=== PATIENT | female | born 1965 | race Caucasian/White ===

== ENCOUNTER 2016-11-12 20:37 | Emergency (ER) | payer OTHER ==
[2016-11-12 20:49] VITALS: TEMP 97.9
[2016-11-12] MEDS ORDERED: traMADol 50 MG TAB PO ONE (23:14)
[2016-11-13] MEDS ORDERED: OXYCODONE/APAP 5/325MG PREPACK#4 BTL TAKEHOME ONE (00:11)
--- NOTE | 2016-11-13 00:12 | EDPHY ---
H & P Stated Complaint: Left Knee Injury Source: Patient, Family - Personal History LMP (Females 10-55): Irregular Current Tetanus Diphtheria and Acellular Pertussis (TDAP): Yes - Medical/Surgical History Hx Asthma: No Hx Chronic Respiratory Disease: No Hx Diabetes: No Hx Cardiac Disease: No Hx Renal Disease: No Hx Cirrhosis: No Hx Alcoholism: No Hx HIV/AIDS: No Hx Splenectomy or Spleen Trauma: No Other PMH: Hypothroid, Fibroids, Polycystic ovaries, - Social History Smoking Status: Never smoked Time Seen by Provider: 11/13/16 00:40 HPI/ROS: HPI: This is a 51-year-old female who presents with Chief Complaint: Left knee injury Location: Left knee Quality: Injury Duration: 3-5 hours prior to arrival Signs and Symptoms: no radiation, no numbness, no weakness, no tingling, + decreased range of motion, + pain with weight-bearing Timing: Sudden Severity: 10/14 Context: Patient has a history of bilateral osteoarthritis of both knees followed outpatient by Dr. Chakraborty; has been receiving Orthovisc injections for the last 4 years. Patient reports that she is walking around [facility] on [address] [employer] today. A gentleman accidentally bumped into her left knee causing it to turn outward with immediate pain. Denies hearing a pop or locking sensation. Modifying Factors: Aleve no relief Comment: ROS: Constitutional: No fever, no chills, no weight loss Eyes: No blurred vision Respiratory: No shortness of breath, no cough Cardiovascular: No chest pain Gastrointestinal: No nausea, no vomiting no diarrhea Genitourinary: No dysuria Extremities: No myalgias Neurologic: No weakness, no numbness Skin: No rashes Hematologic: No bruising, no bleeding MEDICAL/SURGICAL/SOCIAL HISTORY: . (Maria Luisa,Pallavi) - Physical Exam Exam: CONSTITUTIONAL: Obese middle-aged white female, awake and alert, no obvious distress HEENT: Atraumatic and normocephalic, PERRL, EOMI. Tympanic membranes clear. Oropharynx clear, no exudate and moist pink mucosa. Airway patent. No lymphadenopathy. No meningismus. Cardiovascular: Normal S1/S2, regular rate, regular rhythm, without murmur rub or gallop. PULMONARY/CHEST: Symmetrical and nontender. Clear to auscultation bilaterally Good air movement. No accessory muscle usage. ABDOMEN: Soft, nondistended, nontender, no rebound, no guarding, no peritoneal signs, no masses or organomegaly. No CVAT. EXTREMITIES: 2/2 pedal pulses, left knee medial greater than lateral joint line tenderness; mild effusion mostly suprapatellar; full extension to 180; pain with flexion past 50; max is 90. Pain with valgus and varus stress. Will not allow me to perform anterior drawer or posterior drawer test. No calf pain. No fullness and popliteal fossa. Light touch sensation intact. NEUROLOGICAL: no focal neuro deficits. GCS 15. SKIN: Warm and dry, no erythema. no rash. Good capillary refill. (Pallavi Glass) Constitutional: Initial Vital Signs Temperature (C) 36.6 C 11/12/16 20:46 Heart Rate 77 11/12/16 20:46 Respiratory Rate 18 11/12/16 20:46 Blood Pressure 142/95 H 11/12/16 20:46 O2 Sat (%) 97 11/12/16 20:46 O2 Delivery Mode Room Air Allergies/Adverse Reactions: coconut Allergy (Verified 11/12/16 20:45) Home Medications: Medication Instructions Recorded Synthroid 11/12/16 traMADol [Ultram 50 mg (*)] 50 - 100 mg PO Q4 PRN #20 tab 11/13/16 Medical Decision Making - Diagnostics Imaging Results: Imaging Impressions Knee X-Ray 11/12/16 20:50 Impression: Severe degenerative arthritis, with joint effusion. ED Course/Re-evaluation: X-rays, oral medication Patient refused opiate pain medications Did allow me to give her tramadol with moderate relief. X-rays reviewed by myself via PACs show moderate tricompartmental degenerative changes. Suspect ligamentous/meniscus injury; placed in knee immobilizer; given crutches for weight-bearing as tolerated Patient at first had difficulty with ambulation with crutches; but after a while became more proficient. at bedside reports that he will be there to diamond driller helper in her assistance at home I again offered the patient stronger pain medication than Tramadol. She agreed to take 1 dose of Percocet in the ER prior to discharge as well as prepak to take home this evening as pharmacies are closed only. No signs of neurovascular compromise/tenting of skin/compartment syndrome/ extremities and joints examined above and below area of concern and are neurovascularly intact. Patient is requesting follow-up with Dr. Johnson as her is scheduled to have a hip replacement surgery with him. (Pallavi Glass) Differential Diagnosis: Knee injury while [] including but not limited to fracture, ACL injury, contusion, muscular strain, and meniscus injury. (Pallavi Glass) Other Provider: PHYSICIAN DOCUMENTATION: The patient was evaluated and managed by the Physician Heavy Duty Press Operator. My co- signature indicates that I have reviewed this chart and I agree with the findings and plan of care as documented. I am the secondary supervising physician. (Esperanza Gonzalez) - Data Points Medications Given: Discontinued Medications Oxycodone/Acetaminophen (Percocet 5/325mg Prepack#4) 1 btl TAKEHOME EDNOW ONE Stop: 11/13/16 00:12 Last Admin: 11/13/16 00:43 Dose: 1 btl Oxycodone/Acetaminophen (Percocet 5/325) 1 tab PO EDNOW ONE Stop: 11/13/16 00:37 Last Admin: 11/13/16 00:47 Dose: Not Given Tramadol HCl (Ultram) 100 mg PO EDNOW ONE Stop: 11/12/16 23:15 Last Admin: 11/12/16 23:21 Dose: 100 mg Departure - Departure Disposition: Home, Routine, Self-Care Clinical Impression: Derangement of collateral ligament of left knee, Tricompartment osteoarthritis of left knee Condition: Good Instructions: Oxycodone/Acetaminophen (By mouth), Knee Sprain (ED), ACL Injury (ED), Knee Immobilizer (ED) Additional Instructions: Take ibuprofen 600-800 mg every 6-8 hours with food as needed for pain and inflammation. Apply ice for 30 minutes at a time; 2-3 times per day for the next 1-2 days. You may take Ultram 50-100 mg every 4-6 hours as needed for severe/breakthrough pain. Wear knee immobilizer and use crutches until pain free or if follow up with Orthopedics. Follow up with Orthopedics in 2-3 days at which time they will evaluate and recommend with you if conservative management, need for MRI versus surgery is indicated. The x-rays obtained in the emergency department today demonstrate no evidence of an obvious fracture. Sometimes fractures are not obvious on the initial set of x-rays performed in the ED. For this reason, you should have repeat x-rays performed in 7-10 days if you are having any pain exclude the possibility of an occult fracture. Referrals: Corrine Johnson MD [Medical Doctor] - 2-3 days, call for appt. Prescriptions: traMADol [Ultram 50 mg (*)] 50 - 100 mg PO Q4 PRN #20 tab PRN Reason: Pain, Moderate
[2016-11-13] MEDS ORDERED: OXYCODONE/APAP 5/325 TAB ONE (00:36)
[2016-11-13] MEDS ORDERED: OXYCODONE/APAP 5/325 TAB PO ONE (00:36)
[2016-11-13 00:50] VITALS: BP 144/91; PULSE 75; RESP 20; O2SAT 96
== END 2016-11-13 00:50 | disposition home or self-care (01) ==
DX: M23.642 Other spontaneous disruption of lateral collateral ligament of left knee (principal); W22.8XXA Striking against or struck by other objects, initial encounter; Y92.410 Unspecified street and highway as the place of occurrence of the external cause; Y99.8 Other external cause status; Y93.01 Activity, walking, marching and hiking; M17.9 Osteoarthritis of knee, unspecified
CPT/HCPCS: L1830

== ENCOUNTER 2017-03-06 22:33 | Emergency (ER) | payer OTHER ==
--- NOTE | 2017-03-06 23:09 | EDPHY ---
H & P Stated Complaint: FALL 1929, ROLLED LEFT ANKLE, FELL ONTO RIGHT THIGH- PAIN EDEMA Time Seen by Provider: 03/06/17 22:43 HPI/ROS: Chief Complaint: Right thigh, left ankle pain status post fall HPI: 51-year-old woman had a mechanical fall when she slipped on a wet floor about 730 this evening. She inverted her left ankle in landed onto her purse onto her right thigh. Since that time she has had increasing pain and swelling and bruising right thigh and swelling of her left ankle. She does take Motrin every day but no other blood thinning medications. She did not hit her head. No loss of consciousness. She has been ambulating with some discomfort but without any other difficulty. No weakness. ROS: 10 point Review of Systems is negative except as noted in the HPI. Physical Exam: Gen: Awake, Alert, No Distress HEENT: Nose: no rhinorrhea Eyes: PERRLA, EOMI Mouth: Moist mucosa Neck: Supple, no JVD Ext: Right leg:: She has a large anterior lateral mid thigh hematoma with overlying ecchymosis. She has full range of motion of her right hip, right knee and right leg. She has full flexion and extension strength of her knee. Cap refills less than 2 sec. Sensations intact distally. He she has 2+ dorsalis pedis pulses. Toes are downgoing. Left leg: She has ecchymoses over the lateral malleolus with tenderness over the anterior talofibular ligament. No medial tenderness. No foot pain or tenderness. Capillary refills less than 2 sec. Skin: no rash Neuro: CN II-XII intact, Sensation grossly intact, Strength 5/5 in bilateral upper and lower extremities - Personal History LMP (Females 10-55): 1-7 Days Ago Current Tetanus/Diphtheria Vaccine: Yes - Medical/Surgical History Hx Asthma: No Hx Chronic Respiratory Disease: No Hx Diabetes: No Hx Cardiac Disease: No Hx Renal Disease: No Hx Cirrhosis: No Hx Alcoholism: No Hx HIV/AIDS: No Hx Splenectomy or Spleen Trauma: No Other PMH: Hypothroid, Fibroids, Polycystic ovaries, HAND SURG, C-SECT, OSTEOARTHRITIS BILAT KNEE - Social History Smoking Status: Never smoked Constitutional: Initial Vital Signs Temperature (C) 36.5 C 03/06/17 22:39 Heart Rate 90 03/06/17 22:39 Respiratory Rate 24 H 03/06/17 22:39 Blood Pressure 199/118 H 03/06/17 22:39 O2 Sat (%) 98 03/06/17 22:39 O2 Delivery Mode Room Air Allergies/Adverse Reactions: coconut Allergy (Verified 03/06/17 22:38) Home Medications: Medication Instructions Recorded Synthroid 11/12/16 Biothyrine 03/06/17 Medical Decision Making - Diagnostics Imaging Results: Imaging Impressions Ankle X-Ray 03/06/17 22:54 Impression: 1. Soft tissue swelling, most pronounced dorsolaterally with an associated anterior tibiotalar ankle joint effusion, and lateral and medial malleolar avulsion fractures. 2. Age-indeterminate avulsion fragments off the distal dorsal talus and the proximal dorsal navicular. Imaging: I viewed and interpreted images myself ED Course/Re-evaluation: Patient with a large right thigh hematoma and left ankle pain. She has no bony tenderness of her right thigh. She has full range of motion without pain. She has full strength in all flexors and extensors. There is no evidence of acute tendon rupture at this time. She does have a large tense hematoma. She does take Advil daily. No indications for imaging her right leg at this time. She is ambulating without difficulty. Left ankle is swollen and consistent with a left anterior fibular ligament stress brain. Will obtain x-ray to rule out fracture. Patient has bilateral malleolar fractures avulsions. She has been placed in a stirrup splint. She has been referred to Orthopedics for follow-up. She has been given crutches as well. Departure - Departure Disposition: Home, Routine, Self-Care Clinical Impression: Hematoma and contusion, Ankle fracture Condition: Good Instructions: Hematoma (ED), Ankle Fracture (ED), Crutch Instructions (ED), Splint Care (ED) Additional Instructions: Follow up with Orthopedics in 5-7 days for further evaluation. Avoid ibuprofen and aspirin for the next 2 days, you may take acetaminophen as needed for pain. Return to the emergency depart for increasing swelling, weakness, increasing pain, or any other concerns. Referrals: Oly Mitchell [Primary Care Provider] - As per Instructions Waylon Wilcox MD [Medical Doctor] - As per Instructions
[2017-03-07 00:03] VITALS: BP 103/75; PULSE 78; RESP 18; TEMP 97.5; O2SAT 99
== END 2017-03-07 00:03 | disposition home or self-care (01) ==
DX: S82.842A Displaced bimalleolar fracture of left lower leg, initial encounter for closed fracture (principal); S70.11XA Contusion of right thigh, initial encounter; W01.0XXA Fall on same level from slipping, tripping and stumbling without subsequent striking against object, initial encounter
CPT/HCPCS: L4350

== ENCOUNTER → 2017-05-25 | Outpatient (CLI) | payer OTHER | LOC: FIMAGING 13:08 | PROVIDERS: ATTEND Orthopaedic Surgery | DX: S70.11XS Contusion of right thigh, sequela (principal) ==

== ENCOUNTER 2017-11-22 07:31 | Observation (INO) | payer OTHER ==
[~2017-11-22 07:31] MED LIST: ROPIVACAINE 0.2% 80 MG, EPINEPHrine 0.2 MG, KETOROLAC TROMETHAMINE 30 MG in SYRINGE 0 ML IU ONE; TRANEXAMIC ACID 2,000 MG in NS 100 ML IV ONE; TRANEXAMIC ACID 3,000 MG in NS (SYRINGE) 50 ML IRR ONE; TRANEXAMIC ACID 3,000 MG/50 ML BAG IRR ONE; VANCOMYCIN 1 GM VIAL ONE; ceFAZolin 1 GM/5 ML SYR ONE
[2017-11-22] MEDS ORDERED: ACETAMINOPHEN 325 MG TAB PO ONE (07:52)
[2017-11-22] MEDS ORDERED: DEXAMETHASONE 4 MG/ML VIAL IVP ONE (07:52)
[2017-11-22] MEDS ORDERED: ceFAZolin 2 GM/DEXTROSE 100 ML IV ONE (07:52)
[2017-11-22] MEDS ORDERED: FAMOTIDINE 20 MG TAB PO ONE (07:52)
[2017-11-22] MEDS ORDERED: ONDANSETRON 4 MG/2 ML VIAL IVP ONE (07:52)
[2017-11-22] MEDS ORDERED: GABAPENTIN 300 MG CAP PO ONE (07:52)
[2017-11-22] MEDS ORDERED: LIDOCAINE 1% 2 ML INJ ID PRN (07:53)
[2017-11-22] MEDS ORDERED: LR 1,000 ML IV ONE (07:53)
[2017-11-22] MEDS ORDERED: fentaNYL 100 MCG/2 ML INJ ONE (07:59)
[2017-11-22] MEDS ORDERED: PROPOFOL/EMULSION 500 MG/50 ML BOTTLE IV ONE ×2 (08:00→11:24)
[2017-11-22] MEDS ORDERED: POVIDONE-IODINE 20 ML in SODIUM CL IRRIG SOLUTION 500 ML IRR ONE (08:00)
[2017-11-22] MEDS ORDERED: ROPIVACAINE HCL 150 MG/30 ML INJ ONE ×2 (08:02→10:37)
[2017-11-22] MEDS ORDERED: MIDAZOLAM 2 MG/2 ML VIAL IVP ONE (08:11)
[2017-11-22] MEDS ORDERED: CITRIC ACID/SODIUM CITRATE 30 ML UDCUP PO ONE (08:11)
[2017-11-22] MEDS ORDERED: FAMOTIDINE 20 MG/NACL 50 ML IV ONE (08:12)
--- NOTE | 2017-11-22 09:12 | PDHPUP ---
History & Physical Update H&P update statement: This history and physical update is based on an assessment of the patient which was completed after admission or registration (within 24 hours), but prior to the surgery/procedure. H&P update: H&P reviewed & patient examined
[2017-11-22] MEDS ORDERED: HYDROmorphONE/DILAUDID 1 MG/ML INJ IVP PRN (10:28)
[2017-11-22] MEDS ORDERED: fentaNYL 100 MCG/2 ML INJ IVP PRN (10:28)
[2017-11-22] MEDS ORDERED: ALBUTEROL 3 ML DEYVIAL IH PRN (10:28)
[2017-11-22] MEDS ORDERED: PROMETHAZINE HCL 25 MG/ML INJ IVP PRN ×2 (10:28→11:52)
[2017-11-22] MEDS ORDERED: MEPERIDINE 25 MG/0.5 ML AMP IVP PRN (10:28)
[2017-11-22] MEDS ORDERED: DIAZEPAM 5 MG/ML 1 ML SYR IVP PRN (10:28)
[2017-11-22] MEDS ORDERED: ONDANSETRON 4 MG/2 ML VIAL IVP PRN ×2 (10:28→11:52)
[2017-11-22] MEDS ORDERED: LABETALOL HCL 5 MG/ML 20 ML MDV IVP PRN (10:28)
[2017-11-22] MEDS ORDERED: NALOXONE HCL 0.4 MG/ML INJ IVP PRN (10:28)
--- NOTE | 2017-11-22 10:28 | PDANEPAE ---
ANE Past Medical History - Cardiovascular History Hx Hypertension: Yes Hx Arrhythmias: No Hx Chest Pain: No Hx Coronary Artery / Peripheral Vascular Disease: No Hx CHF / Valvular Disease: No Hx Palpitations: No Cardiovascular History Comment: white coat syndrome - Pulmonary History Hx COPD: No Hx Asthma/Reactive Airway Disease: No Hx Recent Upper Respiratory Infection: No Hx Oxygen in Use at Home: No Hx Sleep Apnea: No Sleep Apnea Screening Result - Last Documented: Negative - Neurologic History Hx Cerebrovascular Accident: No Hx Seizures: No Hx Dementia: No - Endocrine History Hx Diabetes: No Endocrine History Comment: ramon's, 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 on metformin for weight control and to curb being pre-diabetic - Renal History Hx Renal Disorders: No - Liver History Hx Hepatic Disorders: No - Neurological & Psychiatric Hx Hx Neurological and Psychiatric Disorders: No - Cancer History Hx Cancer: No - Congenital Disorder History Hx Congenital Disorders: No - GI History Hx Gastrointestinal Disorders: No - Other Health History Other Health History: wears readers occ. fell in feb 2017 breaking ankle that required no surgery- she did however get a large hematoma to her right upper thigh that has now turned into scar tissue per Dr. Henson - Chronic Pain History Chronic Pain: Yes (bilateral knees) - Surgical History Prior Surgeries: x2 last one 06/19/09. at 19 yo hand surgery d/t falling on glass ANE Review of Systems Review of Systems: - Exercise capacity METS (RN): 4 METS ANE Patient History - Allergies Allergies/Adverse Reactions: coconut Allergy (Verified 11/11/17 10:22) - Home Medications Home Medications: Acetaminophen [Tylenol ES 500 mg (*)] 1,500 mg PO BID 11/11/17 [Last Taken Unknown] Levothyroxine [Synthroid 200 mcg (*)] 200 mcg PO DAILY06 11/11/17 [Last Taken 06:15] Liothyronine Sodium [Cytomel 5 mcg (*)] 10 mcg PO DAILY 11/11/17 [Last Taken 06:15] Multivitamins [Multivitamin (*)] 1 each PO DAILY 11/11/17 [Last Taken 11/08/17] [place]-3 Fatty Acids [Fish Oil 1000 mg (*)] 1,000 mg PO DAILY 11/11/17 [Last Taken 11/08/17] metFORMIN HCL [Metformin HCl] 500 mg PO BIDMEAL 11/11/17 [Last Taken 11/20/17] - NPO status NPO Since - Liquids (Date): 11/22/17 NPO Since - Liquids (Time): 06:30 NPO Since - Solids (Date): 11/21/17 NPO Since - Solids (Time): 23:59 - Smoking Hx Smoking Status: Never smoked - Family Anes Hx Family Hx Anesthesia Complications: none ANE Labs/Vital Signs - Vital Signs Blood Pressure: 155/117 Heart Rate: 81 Respiratory Rate: 18 O2 Sat (%): 96 Height: 175.26 cm Weight: 113.852 kg ANE Physical Exam - Airway Neck exam: FROM Mallampati Score: Class 2 Mouth exam: normal dental/mouth exam - Pulmonary Pulmonary: no respiratory distress, clear to auscultation - Cardiovascular Cardiovascular: regular rate and rhythym, no murmur, rub, or gallop - ASA Status ASA Status: III (Severe obesity, htn, hypothyroid) ANE Anesthesia Plan Anesthesia Plan: spinal Regional Anesthesia: adductor canal FNB
[2017-11-22] MEDS ORDERED: LIPID EMULSION 20% 100 ML IV PRN (10:31)
[2017-11-22] MEDS ORDERED: DEXAMETHASONE 4 MG/ML VIAL ONE (10:38)
[2017-11-22] MEDS ORDERED: ONDANSETRON 4 MG/2 ML VIAL ONE (10:38)
--- NOTE | 2017-11-22 11:47 | POSTOPPROG ---
Post Op Note Date of Operation: 11/22/17 Surgeon: Michael Henson Computer Forensic Specialist: Emanuel Anesthesiologist: Eric Anesthesia: IV Sedation, Spinal Post-op Diagnosis: Left knee degenerative arthritis. Procedure: Left total knee arthroplasty Inf/Abcess present in the surg proc area at time of surgery?: No EBL: 50-100 (Adductor canal block in PACU)
[2017-11-22] MEDS ORDERED: PROMETHAZINE HCL 25 MG SUPPR PR PRN (11:52)
[2017-11-22] MEDS ORDERED: LACTULOSE 20 GM/30 ML UDCUP PO PRN (11:52)
[2017-11-22] MEDS ORDERED: NS 500 ML IV PRN (11:52)
[2017-11-22] MEDS ORDERED: POLYETHYLENE GLYCOL 3350 17 GM PKT PO PRN (11:52)
[2017-11-22] MEDS ORDERED: MAGNESIUM HYDROXIDE 30 ML UDCUP PO PRN (11:52)
[2017-11-22] MEDS ORDERED: ONDANSETRON DISINTEGRATING 4 MG TAB PO PRN (11:52)
[2017-11-22] MEDS ORDERED: METOCLOPRAMIDE 10 MG/2 ML VIAL IVP PRN (11:52)
[2017-11-22] MEDS ORDERED: traMADol 50 MG TAB PO PRN (11:52)
[2017-11-22] MEDS ORDERED: CYCLOBENZAPRINE 10 MG TAB PO PRN (11:52)
[2017-11-22] MEDS ORDERED: diphenhydrAMINE 25 MG CAP PO PRN (11:52)
[2017-11-22] MEDS ORDERED: BISACODYL 10 MG SUPP PR PRN (11:52)
[2017-11-22] MEDS ORDERED: DIPHENOXYLATE/ATROPINE LOMOTIL 1 TAB PO PRN (11:52)
[2017-11-22] MEDS ORDERED: TEMAZEPAM 15 MG CAP PO PRN (11:52)
[2017-11-22] MEDS ORDERED: LR 1,000 ML IV SCH (12:00)
--- NOTE | 2017-11-22 12:36 | GOP ---
DATE OF OPERATION: 11/22/2017 SURGEON: Michael Henson MD SIDE PULLER: Chris Gustafson [facility] Anuel Fitzpatrick, [place] ANESTHESIA: Combination of Marcaine, spinal, IV sedation, and adductor canal block ANESTHESIOLOGIST: Liliam Reyes DO PREOPERATIVE DIAGNOSIS: Left knee severe degenerative arthritis. POSTOPERATIVE DIAGNOSIS: Left knee severe degenerative arthritis. PROCEDURE PERFORMED: Left total knee arthroplasty, cemented, Mccoy and Nephew Journey II, posterior stabilized. FINDINGS: ESTIMATED BLOOD LOSS: The estimated blood loss following deflation of the tourniquet was about 100 c c. DESCRIPTION OF PROCEDURE: The patient was given 2 g of IV Ancef preoperatively within 60 minutes of surgery. She also received 2000 mg of IV tranexamic acid preoperatively. She was placed on the oper ating room table and given spinal anesthesia with Marcaine by Dr. Reyes. She was then placed supin e and given IV sedation. A Jarquin catheter was not used. She wore a CATHERINE stocking and SCD on the nono perative leg. A bolster was placed under the left hip to prevent excessive external rotation of the leg. Her left lower extremity was prepped with ChloraPrep from the upper thigh tourniquet to the tip s of the toes. It was draped free using sterile sheets, stockinette, and Ioban plastic adhesive drap e. The lower leg was wrapped with compressive Coban. The leg was exsanguinated with elevation and a 6-inch compressive wrap, and the pneumatic tourniquet was elevated to 400 mmHg. A higher tourniquet pressure was necessary because of how bulky her leg was. The World Health Organization time-out was performed to verify the correct patient identity and the c orrect surgical side and site. The [place] time-out was also performed. The Taltopiaayo leg holding device was sterilely attached to the operating room table and used throughout the procedure to help position the knee. A straight midline incision was made centered on the patell a. Subcutaneous tissues were sharply divided, and hemostasis was obtained using electrocautery. She had a deep layer of subcutaneous fat. A medial subcutaneous flap was developed and capsule and syno vium were opened in medial parapatellar fashion. Extensive degenerative changes were present. She h ad an extensive amount of hypertrophic acutely inflamed synovium, and she had a large effusion presen t in the joint. The medial capsule and periosteum were elevated off the rim of the medial tibial connie teau all the way around to the posteromedial corner. Her medial collateral ligament was released perri ugh to balance the medial side of the knee and correct the varus deformity. I also did a moderate sy novectomy in the medial and lateral gutters and in the suprapatellar pouch. In order to improve exposure, her patella was prepared first. The original thickness of the patella was measured. Peripheral osteophytes were removed. I cut a flat surface on the back of the patella. It was sized for a 38 mm round resurfacing component. I removed enough bone from the patella such that the remaining bone plus the thickness of the patellar component recreated the original thickness of the patella. The composite thickness was 22 mm. The intramedullary alignment guide system was used to set up the distal femoral cut. The femur was c ut in 6 degrees of valgus. Because of a slight preoperative flexion contracture, I made a +2 mm cut on the distal femur. The sizing jig was used to determine proper femoral sizing. I shifted the cutt ing block anteriorly 1 mm in order to accommodate a size 5 without notching the anterior cortex. The 5-in-1 cutting block was applied, and the anterior and posterior condylar cuts and chamfer cuts were made. The final jig was used to remove the central portion of the distal femur to accommodate the p osterior stabilized femoral component. I was careful to determine proper rotation by referencing off Whitesides line and other bony landmarks. Each cut was checked for accuracy. The femur was sized f or a size 5 posterior stabilized component. Next, the tibia was prepared. The proximal tibial cut was made using the extramedullary alignment gu sawyer system. The cut was made in a few degrees of posterior slope. I was careful to achieve proper v arus/valgus alignment and proper rotation. The posterior compartment was cleared of meniscal remnant s. Osteophytes were removed from the back of the femoral condyles. I checked the flexion/extension gaps, and they were equal and balanced. Tibia was sized for a size 5 component. With the trial comp onents in place, I selected the 10 mm polyethylene posterior stabilized tibial insert. The knee came to full extension and flexed to 120 degrees. Flexion greater than 120 degrees was blocked by the bu lk of her leg. Her collateral ligaments were stable and balanced in 90 degrees of flexion and full e xtension. The trial patellar button was applied. She had a tendency for lateral subluxation and jimmy winston I did a limited lateral release. After that, tracking was excellent without digital pressure. 40 cc of the joint anesthetic cocktail were injected into the posterior capsule, the quadriceps muscl e and tendon areas, and the subcutaneous tissues along the skin edges. The surfaces were prepared for cementing. They were carefully cleaned with the pulsating lavage irri gation and thoroughly dried. The CarboJet device was used to blow dry the cancellous surfaces. A do uble batch of high viscosity methylmethacrylate cement with 2 g of powdered vancomycin was added. Wh ile it was still in a doughy state, all 3 components were cemented in place. Excess cement was remov ed before it hardened. The 10 mm trial tibial insert was re-tried and was the proper thickness. The actual component was in serted and locked into place. The knee was thoroughly irrigated 1 final time with a dilute Betadine solution. The tourniquet was deflated. Total tourniquet time was 62 minutes. I instilled 50 cc of tranexamic acid solution locally into the joint. I packed the wound with the lap sponge, and wrapped the knee w ith a 6-inch Edgardo bandage. This was left in place for 3 or 4 minutes. The vastus medialis portion of the extensor mechanism was repaired with several interrupted figure-of -eight #2 FiberWire sutures. The capsule and synovium were closed first with multiple interrupted fi [id number] PDS sutures, followed by a running #2 barbed Ethicon Stratafix PDO suture. The subcu taneous tissues were closed with a running 0 barbed Ethicon Stratafix Monoderm suture. The skin was closed with a running 3-0 barbed Ethicon Stratafix Monoderm subcuticular suture. The skin was sealed with half-inch Steri-Strips. The wound was covered with a large Mepilex waterproof dressing and a 6 -inch compressive wrap. A long-leg CATHERINE stocking and SCD were applied, followed by the cooling device . She wore a stocking and SCD on the opposite leg during the procedure. The sacral Mepilex dressing was applied. I used a size 5 cemented Mccoy and Nephew Oxinium posterior stabilized femoral component, size 5 ceme nted tibial baseplate, a 10 mm posterior stabilized tibial insert, and a 38 mm cemented round all-chloe yethylene resurfacing patellar component. COUNT: The sponge and needle count were correct on 2 occasions. She was awakened from anesthesia, transferred to her hospital [facility], and taken to PACU in satisfacto ry condition. There were no recognized intraoperative complications. In the PACU, for additional po stoperative pain control, Dr. Reyes performed an adductor canal block with an indwelling catheter. Chris Gustafson [facility] and Francesco Fitzpatrick, PAC, acted as surgical assistants. Their assistance was a [facility] necessity for safe completion of the procedure. /[id number]/MODL
[2017-11-22] MEDS ORDERED: KETOROLAC 15 MG/1 ML SDV ONE (12:46)
[2017-11-22] MEDS: KETOROLAC 15 MG/1 ML SDV IVP SCH ×2 (12:47→17:48)
--- NOTE | 2017-11-22 13:30 | POSTANESTH ---
Post Anesthetic Evaluation Respiratory Status: Normal, Stable Level of Consciousness/Mental Status: Can Participate in Eval Pain Control: Adequate, Prn Tx Ordered Nausea/Vomiting Control: Adequate, Prn Tx Ordered Complications Possibly Related to Anesthesia: None Noted
[2017-11-22] MEDS ORDERED: MIDAZOLAM 2 MG/2 ML VIAL ONE (14:23)
[2017-11-22] MEDS: ACETAMINOPHEN 325 MG TAB PO SCH ×2 (15:30→19:15)
[2017-11-22] MEDS: ceFAZolin 2 GM/DEXTROSE 100 ML IV SCH (17:45)
[2017-11-22] MEDS: metFORMIN HCL 500 MG TAB PO SCH (17:49)
[2017-11-22] MEDS: ASPIRIN 325 MG TAB PO SCH (19:57)
[2017-11-22] MEDS: SENNOSIDES/DOCUSATE SODIUM TAB PO SCH (19:58)
[2017-11-22] MEDS: FAMOTIDINE 20 MG TAB PO SCH (19:58)
[2017-11-22] MEDS: oxyCODONE IR 5 MG TAB PO PRN ×2 (20:01→20:47)
[2017-11-23] MEDS: KETOROLAC 15 MG/1 ML SDV IVP SCH ×2 (00:08→06:22)
[2017-11-23] MEDS: ACETAMINOPHEN 325 MG TAB PO SCH ×4 (00:08→17:51)
[2017-11-23] MEDS: ceFAZolin 2 GM/DEXTROSE 100 ML IV SCH (02:06)
[2017-11-23] MEDS: oxyCODONE IR 5 MG TAB PO PRN ×4 (02:07→17:51)
[2017-11-23] MEDS ORDERED: LIOTHYRONINE SODIUM 5 MCG TAB PO SCH (06:00)
[2017-11-23] MEDS ORDERED: LEVOTHYROXINE 100 MCG TAB PO SCH (06:00)
[2017-11-23] MEDS: SENNOSIDES/DOCUSATE SODIUM TAB PO SCH (07:40)
[2017-11-23] MEDS: FAMOTIDINE 20 MG TAB PO SCH (07:40)
[2017-11-23] MEDS: ASPIRIN 325 MG TAB PO SCH (07:40)
[2017-11-23] MEDS: metFORMIN HCL 500 MG TAB PO SCH (07:41)
--- NOTE | 2017-11-23 08:03 | PDCONSULT ---
Leather Cartridge Belt Maker Note: 52 yo female s/p L TKA POD #1 with indwelling adductor canal catheter. Patient awake and alert. No problems reported with anesthetic. Catheter site clean and dry. 15 ml of 0.5% Ropivicaine injected with frequent aspiration. Patient tolerated procedure well. Catheter removed and band-aid placed.
[2017-11-23] MEDS ORDERED: FERROUS SULFATE 140 MG TAB.ER PO SCH (09:00)
--- NOTE | 2017-11-23 12:46 | SOAPPROG ---
SOAP Progress Note Assessment/Plan: Assessment: Postop day 1. Afebrile. Moderate pain. Her progress with physical therapy has been somewhat slow. Postop H&H are good. Postop films look excellent. Her dressing is dry. Plan: Continue physical therapy today. Probable discharge later today if she is cleared by physical therapy. 11/23/17 12:45 Objective: Vital Signs Temp Pulse Resp BP Pulse Ox 36.9 C 73 16 139/86 H 96 11/23/17 12:00 11/23/17 12:00 11/23/17 12:00 11/23/17 12:00 11/23/17 12:00 Laboratory Results 11/23/17 04:45 11/22/17 11/23/17 11/24/17 05:59 05:59 05:59 Intake Total 1909 Output Total 1999 1099 Balance -90 -1100 ICD10 Worksheet Patient Problems: Problems Problem Status Onset Osteoarthritis of left knee Acute
--- NOTE | 2017-11-23 13:02 | GDS ---
ADMISSION DIAGNOSIS: Left knee severe degenerative arthritis. DISCHARGE DIAGNOSIS: Left knee severe degenerative arthritis. TEST PERFORMED: November 22, 2017, left total knee arthroplasty. POSTOPERATIVE COMPLICATIONS: None. CONDITION ON DISCHARGE: Improved. DESCRIPTION OF HOSPITAL COURSE: The patient was admitted to the hospital on the morning of surgery. Her admission H and H were 11.7 and 38.1. Electrolytes, BUN and creatinine were normal. The same d ay, under a combination of Marcaine, spinal, IV sedation, and adductor canal block she underwent a le ft total knee arthroplasty. Postoperatively, she was treated with multimodal DVT prophylaxis, includ ing aspirin. On the first postoperative day, her hemoglobin and hematocrit were 9.6 and 31.2. Her p rogress initially with physical therapy and ambulation was slow. Eventually she was independent walk ing with a walker and doing stairs. DISPOSITION: The patient is discharged to her home. She will go to outpatient physical therapy. Sh e may progress to full weightbearing on the left as tolerated. Continue CATHERINE stockings for 1 week. W ork on knee range of motion. Continue aspirin 325 mg p.o. daily for 21 days. She has prescriptions for oxycodone. She is allergic to tramadol. She will supplement the oxycodone with Tylenol. She wi ll also use Celebrex at home 1 a day for 21 days. I will see her back in the office on December 08. If there any problems, she is to call me at the office. /[id number]/MODL
--- NOTE | 2017-11-23 15:15 | PDIAF ---
- Diagnosis Diagnosis: L knee OA Code Status: Full Code - Medication Management Discharge Medications: Medications to Continue on Transfer Levothyroxine [Synthroid 200 mcg (*)] 200 mcg PO DAILY06 11/11/17 [Last Taken 06:15] Liothyronine Sodium [Cytomel 5 mcg (*)] 10 mcg PO DAILY@06 11/11/17 [Last Taken 11/22/17 06:15] Multivitamins [Multivitamin (*)] 1 each PO DAILY 11/11/17 [Last Taken 11/08/17] Surrency-3 Fatty Acids [Fish Oil 1000 mg (*)] 1,000 mg PO DAILY 11/11/17 [Last Taken 11/08/17] metFORMIN HCL [Metformin HCl] 500 mg PO BIDMEAL 11/11/17 [Last Taken 11/20/17] Acetaminophen [Tylenol 325mg (*)] 650 mg PO Q6HRS tab 11/23/17 [Last Taken Unknown] Aspirin [Aspirin 325 mg (*)] 325 mg PO DAILY tab 11/23/17 [Last Taken Unknown] Ferrous Sulfate [Slow Fe 140 MG (*)] 140 mg PO DAILY tab.er 11/23/17 [Last Taken Unknown] Ondansetron Odt [Zofran Odt 4 mg (*)] 4 mg PO Q4HRS PRN tab 11/23/17 [Last Taken Unknown] Sennosides/Docusate Sodium [Senokot-S] 1 - 2 tab PO BID tab 11/23/17 [Last Taken Unknown] celeCOXIB [Celebrex (*)] 200 mg PO DAILY cap 11/23/17 [Last Taken Unknown] oxyCODONE IR [Oxycodone Ir (*)] 5 - 10 mg PO Q3HRS PRN #30 tab 11/23/17 [Last Taken Unknown] Discharge Medications: Refer to the Discharge Home Medication list for PRN reason. PICC Care - Routine: N/A - Orders Services needed: Home Care, Physical Therapy Home Care Face to Face: I certify that this patient was under my care and that I had the required [id number] encounter meeting the encounter requirements on the discharge day. My findings support the fact that the patient is homebound as defined in Home Care Face to Face Continued: CMS Chapter 7 Medicare Benefits Manual 30.1.1 , The condition of the patient is such that there exists a normal inability to leave home and consequently, leaving home would require a considerable and taxing effort. Diet Recommendation: no restrictions on diet Diet Texture: Regular Texture Diet Jarquin: Not applicable Gianni Stockings Discontinue Date: 1 week Wound Care Instructions: keep clean and dry. You may shower. Activity/Weight Bearing Restrictions: As tolerated. - Follow Up Care Current Providers and Referrals: Michael Henson MD [Medical Doctor] - 12/08/17 Oly Mitchell [Primary Care Provider] -
[2017-11-23 15:26] VITALS: BP 151/87
--- NOTE | 2017-11-23 17:05 | ASMTLACE ---
LACE Length of stay for Answers: 2 days current admission Acuity / Level of Answers: No Care: Did the patient have an inpatient admission? Comorbidities - select Answers: Opioid dependence all that apply / Chronic pain Other Notes: HTN # of Emergency department Answers: 0 visits in the last 6 months Score: 7 Date Signed: 11/23/2017 04:58 PM Electronically Signed By:RACHEL Walker
--- NOTE | 2017-11-23 17:08 | ASMTCMCOM ---
CM Note CM Note Notes: Pt s/p OA of knee. OT rec home/HHC, PT rec HHC. Pt requests HHC as she needs stair training/home safety considering the 21 stairs she has. Pt decided very late in the business day she was going to d/c today, [facility] alerted and because the notification was late in the day [facility] may not be able to see pt until Tuesday. [facility] will let this CM know staffing tomorrow and CM will update pt if the [facility] SOC is not until Tuesday. Orders to be obtained via [employer]. Pt to transport home. Date Signed: 11/23/2017 05:04 PM Electronically Signed By:RACHEL Walker
--- NOTE | 2017-11-24 11:23 | ASDISCHSUM ---
Discharge Information Plan Status:Home with Home Health Medically Cleared to Leave: Discharge Date:11/23/2017 06:10 PM D/C Disposition:Home Health Service ADT D/C Disposition:Home, Routine, Self-Care Projected Discharge Date:11/23/2017 11:00 AM Transportation at D/C: Discharge Delay Reason: Follow-Up Date:11/23/2017 11:00 AM Discharge Slot: Final Diagnosis: Placement Information Referral Type:*Home Health Care Services Referral ID:[id number] Provider Name:[facility] Address 1:[address] [address] Address 2: City:[place] Selection Factors: State:[place] Patient Contact Information Contact Name:BRAD Relationship: Address:[address] City:[place] Alternate Phone: State/Zip Code:[place] [address] Email: Financial Information Financial Class:HMO and PPO Plans Primary Plan Desc:[facility] Primary Plan Number:[id number] Secondary Plan Desc: Secondary Plan Number: Assessment Information LACE LACE Length of stay for Answers: 2 days current admission Acuity / Level of Answers: No Care: Did the patient have an inpatient admission? Comorbidities - select Answers: Opioid dependence all that apply / Chronic pain Other Notes: HTN # of Emergency department Answers: 0 visits in the last 6 months Score: 7 Date Signed: 11/23/2017 04:58 PM Electronically Signed By:RACHEL Walker [facility] CM Progress Note CM Note CM Note Notes: Pt s/p OA of knee. OT rec home/HHC, PT rec HHC. Pt requests HHC as she needs stair training/home safety considering the 21 stairs she has. Pt decided very late in the business day she was going to d/c today, [facility] alerted and because the notification was late in the day [facility] may not be able to see pt until Tuesday. [facility] will let this CM know staffing tomorrow and CM will update pt if the HC SOC is not until Tuesday. Orders to be obtained via [employer]. Pt to transport home. Date Signed: 11/23/2017 05:04 PM Electronically Signed By:RACHEL Walker Intervention Information
== END 2017-11-23 18:10 | disposition home health service (06) ==
LOC: F3N 07:31
PROVIDERS: ADMIT Orthopaedic Surgery; ATTEND Orthopaedic Surgery
PROC: 0SRD0J9 Replacement of Left Knee Joint with Synthetic Substitute, Cemented, Open Approach (ICD-10-PCS; principal; 2017-11-22 09:15)
DX: M17.12 Unilateral primary osteoarthritis, left knee (principal); I10 Essential (primary) hypertension
CPT/HCPCS: 27447; 73560; 77073; 97110; 97116; 97161; 97165; 97530; 97535; G0378; C1713; J0171; J0690; J1100; J1885; J2250; J2405; J2704; J2795; J3010; J3370

== ENCOUNTER 2018-01-31 09:43 | Observation (INO) | payer OTHER ==
[~2018-01-31 09:43] MED LIST changes: +POVIDONE-IODINE 20 ML in SODIUM CL IRRIG SOLUTION 500 ML IRR ONE; -TRANEXAMIC ACID 3,000 MG/50 ML BAG IRR ONE; -VANCOMYCIN 1 GM VIAL ONE; -ceFAZolin 1 GM/5 ML SYR ONE
[2018-01-31] MEDS ORDERED: FAMOTIDINE 20 MG TAB PO ONE (10:03)
[2018-01-31] MEDS ORDERED: ONDANSETRON 4 MG/2 ML VIAL IVP ONE (10:03)
[2018-01-31] MEDS ORDERED: ceFAZolin 2 GM/DEXTROSE 100 ML IV ONE (10:03)
[2018-01-31] MEDS ORDERED: DEXAMETHASONE 4 MG/ML VIAL IVP ONE (10:03)
[2018-01-31] MEDS ORDERED: ACETAMINOPHEN 325 MG TAB PO ONE (10:03)
[2018-01-31] MEDS ORDERED: GABAPENTIN 300 MG CAP PO ONE (10:03)
[2018-01-31] MEDS ORDERED: LR 1,000 ML IV ONE (10:04)
[2018-01-31] MEDS ORDERED: LIDOCAINE 1% 2 ML INJ ID PRN (10:04)
[2018-01-31] MEDS ORDERED: VANCOMYCIN 1 GM VIAL ONE (10:19)
[2018-01-31] MEDS ORDERED: ceFAZolin 1 GM/5 ML SYR ONE (10:20)
[2018-01-31] MEDS ORDERED: MIDAZOLAM 2 MG/2 ML VIAL ONE (12:11)
[2018-01-31] MEDS ORDERED: BUPIVACAINE/DEXTROSE 7.5MG/ML 2 ML SPINAL AMP SP ONE (12:20)
[2018-01-31] MEDS ORDERED: ROPIVACAINE HCL 150 MG/30 ML INJ ONE (12:20)
[2018-01-31] MEDS ORDERED: PROPOFOL/EMULSION 500 MG/50 ML BOTTLE IV ONE ×3 (12:20→14:02)
[2018-01-31] MEDS ORDERED: DEXAMETHASONE 4 MG/ML VIAL ONE (12:36)
[2018-01-31] MEDS ORDERED: ONDANSETRON 4 MG/2 ML VIAL ONE (12:36)
[2018-01-31] MEDS ORDERED: fentaNYL 100 MCG/2 ML INJ IVP PRN (12:39)
[2018-01-31] MEDS ORDERED: oxyCODONE IR 5 MG TAB PO PRN (12:39)
[2018-01-31] MEDS ORDERED: MIDAZOLAM 2 MG/2 ML VIAL IVP ONE (12:39)
[2018-01-31] MEDS ORDERED: ALBUTEROL 3 ML DEYVIAL IH PRN (12:39)
[2018-01-31] MEDS ORDERED: DEXAMETHASONE 4 MG/ML VIAL IVP PRN (12:39)
[2018-01-31] MEDS ORDERED: ONDANSETRON 4 MG/2 ML VIAL IVP PRN ×2 (12:39→14:36)
[2018-01-31] MEDS ORDERED: NALOXONE HCL 0.4 MG/ML INJ IVP PRN (12:39)
[2018-01-31] MEDS ORDERED: HYDROmorphONE/DILAUDID 2 MG/ML INJ IVP PRN (12:39)
--- NOTE | 2018-01-31 12:41 | PDANEPAE ---
ANE History of Present Illness R TKA ANE Past Medical History - Cardiovascular History Hx Hypertension: Yes Hx Arrhythmias: No Hx Chest Pain: No Hx Coronary Artery / Peripheral Vascular Disease: No Hx CHF / Valvular Disease: No Hx Palpitations: No Cardiovascular History Comment: white coat syndrome - Pulmonary History Hx COPD: No Hx Asthma/Reactive Airway Disease: No Hx Recent Upper Respiratory Infection: No Hx Oxygen in Use at Home: No Hx Sleep Apnea: No Sleep Apnea Screening Result - Last Documented: Negative - Neurologic History Hx Cerebrovascular Accident: No Hx Seizures: No Hx Dementia: No - Endocrine History Hx Diabetes: No Endocrine History Comment: ramon's, 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 on metformin for weight control and to curb being pre-diabetic - Renal History Hx Renal Disorders: No - Liver History Hx Hepatic Disorders: No - Neurological & Psychiatric Hx Hx Neurological and Psychiatric Disorders: No - Cancer History Hx Cancer: No - Congenital Disorder History Hx Congenital Disorders: No - GI History Hx Gastrointestinal Disorders: No - Other Health History Other Health History: wears readers occ. fell in feb 2017 breaking ankle that required no surgery- she did however get a large hematoma to her right upper thigh that has now turned into scar tissue per Dr. Henson - Chronic Pain History Chronic Pain: Yes (bilateral knees) - Surgical History Prior Surgeries: x2 last one 06/19/09. at 19 yo hand surgery d/t falling on glass ANE Review of Systems Review of Systems: - Exercise capacity METS (RN): 4 METS ANE Patient History - Allergies Allergies/Adverse Reactions: coconut Allergy (Verified 01/25/18 12:14) - Home Medications Home Medications: Levothyroxine [Synthroid 200 mcg (*)] 11/11/17 [Last Taken 01/31/18 07:55] Liothyronine Sodium [Cytomel 5 mcg (*)] 11/11/17 [Last Taken 01/31/18 07:55] metFORMIN HCL [Metformin HCl] 11/11/17 [Last Taken 3 Days Ago ~01/28/18] Acetaminophen [Tylenol 325mg (*)] Q6HRS PRN 01/25/18 [Last Taken 01/31/18 07:55] celeCOXIB [Celebrex (*)] 01/25/18 [Last Taken 1 Day Ago ~01/30/18] - NPO status NPO Since - Liquids (Date): 01/31/18 NPO Since - Liquids (Time): 07:45 NPO Since - Solids (Date): 01/30/18 NPO Since - Solids (Time): 22:00 - Smoking Hx Smoking Status: Never smoked - Family Anes Hx Family Hx Anesthesia Complications: none ANE Labs/Vital Signs - Vital Signs Blood Pressure: 164/108 Heart Rate: 90 Respiratory Rate: 18 O2 Sat (%): 95 Height: 175.26 cm Weight: 113.852 kg ANE Physical Exam - Airway Neck exam: FROM Mallampati Score: Class 2 Mouth exam: normal dental/mouth exam - Pulmonary Pulmonary: clear to auscultation - Cardiovascular Cardiovascular: regular rate and rhythym - ASA Status ASA Status: III ANE Anesthesia Plan Anesthesia Plan: spinal Regional Anesthesia: adductor canal FNB
--- NOTE | 2018-01-31 14:18 | POSTOPPROG ---
Post Op Note Date of Operation: 01/31/18 Surgeon: Michael Henson Blanching Machine Operator: Sj/Amari Anesthesiologist: Kumar Anesthesia: IV Sedation, Spinal Post-op Diagnosis: Right knee severe degenerative arthritis. Procedure: Right total knee arthroplasty. Inf/Abcess present in the surg proc area at time of surgery?: No EBL: 50-100 (Adductor canal block with indwelling catheter in PACU)
[2018-01-31] MEDS ORDERED: CYCLOBENZAPRINE 10 MG TAB PO PRN (14:36)
[2018-01-31] MEDS ORDERED: POLYETHYLENE GLYCOL 3350 17 GM PKT PO PRN (14:36)
[2018-01-31] MEDS ORDERED: TEMAZEPAM 15 MG CAP PO PRN (14:36)
[2018-01-31] MEDS ORDERED: BISACODYL 10 MG SUPP PR PRN (14:36)
[2018-01-31] MEDS ORDERED: METOCLOPRAMIDE 10 MG/2 ML VIAL IVP PRN (14:36)
[2018-01-31] MEDS ORDERED: PROMETHAZINE HCL 25 MG SUPPR PR PRN (14:36)
[2018-01-31] MEDS ORDERED: ONDANSETRON DISINTEGRATING 4 MG TAB PO PRN (14:36)
[2018-01-31] MEDS ORDERED: LACTULOSE 20 GM/30 ML UDCUP PO PRN (14:36)
[2018-01-31] MEDS ORDERED: NS 500 ML IV PRN (14:36)
[2018-01-31] MEDS ORDERED: DIPHENOXYLATE/ATROPINE LOMOTIL 1 TAB PO PRN (14:36)
[2018-01-31] MEDS ORDERED: MAGNESIUM HYDROXIDE 30 ML UDCUP PO PRN (14:36)
[2018-01-31] MEDS ORDERED: diphenhydrAMINE 25 MG CAP PO PRN (14:36)
[2018-01-31] MEDS ORDERED: PROMETHAZINE HCL 25 MG/ML INJ IVP PRN (14:36)
--- NOTE | 2018-01-31 14:55 | POSTANESTH ---
Post Anesthetic Evaluation Cardiovascular Status: Normal, Stable Respiratory Status: Normal, Stable Level of Consciousness/Mental Status: Can Participate in Eval, Alert and Oriented Pain Control: Adequate, Prn Tx Ordered Nausea/Vomiting Control: Adequate, Prn Tx Ordered Complications Possibly Related to Anesthesia: None Noted
[2018-01-31] MEDS ORDERED: LR 1,000 ML IV SCH (15:00)
--- NOTE | 2018-01-31 15:50 | GOP ---
DATE OF OPERATION: 01/31/2018 SURGEON: Michael Henson MD REGIONAL EDUCATION MANAGER: Chris Gustafson, OPERATIONS/DISPATCH and Anuel Fitzpatrick, PAC. ANESTHESIA: A combination of Marcaine, spinal, IV sedation, and adductor canal block. ANESTHESIOLOGIST: Harley Heath DO PREOPERATIVE DIAGNOSIS: Right knee severe degenerative arthritis with varus deformity. POSTOPERATIVE DIAGNOSIS: Right knee severe degenerative arthritis with varus deformity. PROCEDURE PERFORMED: Right total knee arthroplasty, cemented, Mccoy and Nephew Journey II, posterior stabilized. FINDINGS: DESCRIPTION OF PROCEDURE: The patient was given 2 g of IV Ancef within 60 minutes of surgery. She a lso received IV tranexamic acid preoperatively. She was placed on the operating room table and given spinal anesthesia with Marcaine by Dr. Heath. She was then placed supine and given IV sedation. A Jarquin catheter was not used. She wore a CATHERINE stocking and SCD on the nonoperative leg. A bolster was placed under the right hip to prevent excessive external rotation of the leg. Her right lower extre mity was prepped with ChloraPrep from the upper thigh tourniquet to the tips of the toes. It was patrick ped free using sterile sheets, stockinette, and Ioban plastic adhesive drape. The lower leg was wrap ped with compressive Coban. The leg was exsanguinated with elevation and a 6-inch compressive wrap, and the pneumatic tourniquet was inflated to 350 mmHg. A higher tourniquet pressure was necessary be cause of how bulky her thigh was. The World Health Organization time-out was performed to verify the correct patient identity and the c orrect surgical side and site. The [place] time-out was also performed. The Candi Controlsayo leg holding device was sterilely attached to the operating room table and used throughout the procedure to help position the knee. A straight midline incision was made centered on the patell a. Subcutaneous tissues were sharply divided and hemostasis was obtained using electrocautery. She had a deep layer of subcutaneous fat. A medial subcutaneous flap was developed, and the capsule and synovium were opened in a medial parapatellar fashion. Extensive degenerative changes were present. She had large osteophytes along the medial and lateral rims of her femur. She also had a very large amount of hypertrophic, acutely inflamed synovium and a large effusion. The medial capsule and marysol osteum were elevated off the rim of the medial tibial plateau all the way around to the posteromedial corner. Her medial collateral ligament was released enough to balance the medial side of the knee a nd correct the varus deformity. I did a subtotal synovectomy in the medial and lateral gutters and i n the suprapatellar pouch. In order to improve exposure, her patella was prepared first. The original thickness of the patella was measured. Peripheral osteophytes were removed. I cut a flat surface on the back of the patella. She was sized for a 38 mm round resurfacing component. I removed enough bone from the patella, suc h that the remaining bone, plus the thickness of the patellar component recreated the original thickn ess of the patella. The composite thickness was 23 mm. The intramedullary alignment guide system was used to set up the distal femoral cut. The distal femu r was cut in 6 degrees of valgus. Because of a mild preoperative flexion contracture, and because I was using a posterior stabilized femoral component, I made a +2 mm cut on the distal femur. I shifte d the size 5 cutting block anteriorly 2 mm in order to accommodate the size 5 without notching the co rtex. The 5-in-1 cutting block was applied, and the anterior and posterior condylar cuts and chamfer cuts were made. The final jig was used to remove the central portion of the distal femur to accommo date the posterior stabilized femoral component. I was careful to determine proper rotation by refer encing off Whitesides line and other bony landmarks. Each cut was checked for accuracy. The femur w as sized for a size 5 posterior stabilized component. Next, the tibia was prepared. The proximal cut was made using the extramedullary alignment guide sys tem. The cut was made in a few degrees of posterior slope. I was careful to achieve proper varus, v algus alignment and proper rotation. The posterior compartment was cleared of meniscal remnants. Os teophytes were removed from the back of her femoral condyles. I checked the flexion and extension ga ps and they were equal and balanced. Her tibia was sized for a size 5 component. With the trial com ponents in place, I selected an 11 mm polyethylene posterior stabilized tibial insert. The knee came to full extension and flexed to 120 degrees. Flexion further than 120 degrees was blocked by the bu lk of her leg. Her collateral ligaments were stable and balanced in 90 degrees of flexion and full e xtension. The trial patellar button was applied. Patellar tracking was excellent without any digita l pressure. 40 mL of the joint anesthetic cocktail were injected into the posterior capsule, the quadriceps muscl e and tendon areas, and the subcutaneous tissues along the skin edges. The surfaces were prepared fo r cementing. They were carefully cleaned with the pulsating lavage irrigation and thoroughly dried. The CarboJet device was used to blow dry the cancellous surfaces. A double batch of high viscosity methylmethacrylate cement with 2 g of powdered vancomycin added was mixed. While it was still in a d oughy state, all [address] components were cemented in place. Excess cement was removed before it hardened. The 11 mm trial tibial insert was re-tried and was the proper thickness. The actual component was in serted and locked into place. The knee was thoroughly irrigated 1 final time with a dilute Betadine solution. The tourniquet was deflated. Total tourniquet time was 1 hour and 5 minutes. 50 cc of tr anexamic acid solution were irrigated into the joint. I packed the wound with a lap sponge and wrapp ed the knee with a 6-inch Edgardo bandage. This was left in place for 2 or 3 minutes. The vastus medialis portion of the extensor mechanism was repaired with several interrupted figure-of -eight #2 FiberWire sutures. The capsule and synovium were closed first with multiple interrupted fi [id number] 0 PDS sutures, followed by a running. barbed Ethicon Stratafix PDO suture. The subcuta neous tissues were closed with a running 0 barbed Ethicon Stratafix Monoderm suture. The skin was cl osed with a running 3-0 barbed Ethicon Stratafix Monoderm subcuticular suture. The skin was sealed w ith half-inch Steri-Strips. The wound was covered with a large Mepilex waterproof dressing and a 6-i nch compressive wrap. A long-leg CATHERINE stocking and SCD were applied, followed by the cooling device. The sacral Mediplex dressing was also applied. I used a size 5 cemented Mccoy and Nephew Oxinium posterior stabilized femoral component, size 5 ceme nted tibial base plate, an 11 mm posterior stabilized tibial insert, and a 38 mm cemented round all-p olyethylene resurfacing patellar component. Because of her size, I elected to cement the stem of the tibial base plate. The sponge and needle count were correct on 2 occasions. She was awakened from anesthesia, transferred to her hospital [facility], and taken to PACU in satisfacto ry condition. There were no recognized intraoperative complications. In the PACU, for additional po stoperative pain control, Dr. Randall Heath performed an adductor canal block with an indwelling cathet er. Chris Gustafson and Francesco Fitzpatrick acted as surgical assistants. Their assistance was a medical necess ity for safe completion of the procedure. /[id number]/MODL
[2018-01-31] MEDS ORDERED: KETOROLAC 15 MG/1 ML SDV IVP SCH (18:00)
[2018-01-31] MEDS: ACETAMINOPHEN 325 MG TAB PO SCH ×2 (18:25→23:25)
[2018-01-31] MEDS: metFORMIN HCL 500 MG TAB PO SCH (18:25)
[2018-01-31] MEDS: oxyCODONE IR 5 MG TAB PO PRN ×3 (19:06→23:24)
[2018-01-31] MEDS: SENNOSIDES/DOCUSATE SODIUM TAB PO SCH (20:00)
[2018-01-31] MEDS: FAMOTIDINE 20 MG TAB PO SCH (20:00)
[2018-01-31] MEDS: ceFAZolin 2 GM/DEXTROSE 100 ML IV SCH (20:00)
[2018-01-31] MEDS: LIOTHYRONINE SODIUM 5 MCG TAB PO SCH (20:04)
[2018-01-31] MEDS: ASPIRIN 325 MG TAB PO SCH (20:06)
[2018-01-31] MEDS: KETOROLAC 15 MG/1 ML SDV IVP SCH (23:34)
[2018-02-01] MEDS: ceFAZolin 2 GM/DEXTROSE 100 ML IV SCH (04:53)
[2018-02-01] MEDS: ACETAMINOPHEN 325 MG TAB PO SCH ×2 (05:07→13:11)
[2018-02-01] MEDS: oxyCODONE IR 5 MG TAB PO PRN ×4 (05:09→15:59)
[2018-02-01] MEDS ORDERED: LEVOTHYROXINE 200 MCG TAB PO SCH (06:00)
[2018-02-01] MEDS: KETOROLAC 15 MG/1 ML SDV IVP SCH ×2 (06:12→12:58)
[2018-02-01] MEDS ORDERED: ROPIVACAINE HCL 150 MG/30 ML INJ ONE (07:22)
[2018-02-01] MEDS: metFORMIN HCL 500 MG TAB PO SCH (08:40)
[2018-02-01] MEDS ORDERED: FERROUS SULFATE 140 MG TAB.ER PO SCH (09:00)
--- NOTE | 2018-02-01 09:16 | SOAPPROG ---
SOAP Progress Note Assessment/Plan: Assessment: Afebrile. Moderate pain. Took oxy yesterday. ACB re dosed. H/H is good. Films look good. Dsg is dry. Plan: Up with PT. DC later today. Home PT. 02/01/18 09:15 Objective: Vital Signs Temp Pulse Resp BP Pulse Ox 37.1 C 78 19 149/85 H 97 02/01/18 07:56 02/01/18 08:25 02/01/18 08:25 02/01/18 08:25 02/01/18 08:25 Laboratory Results 02/01/18 04:31 01/31/18 02/01/18 02/02/18 05:59 05:59 05:59 Intake Total 1750 Output Total 1050 Balance 700 ICD10 Worksheet Patient Problems: Problems Problem Status Onset Osteoarthritis of right knee Acute Osteoarthritis of left knee Acute
--- NOTE | 2018-02-01 09:18 | PDIAF ---
- Diagnosis Diagnosis: right knee OA Code Status: Full Code - Medication Management Discharge Medications: electronically signed and located in the Home Medication List. PICC Care - Routine: N/A - Orders Services needed: Home Care, Physical Therapy Home Care Face to Face: I certify that this patient was under my care and that I had the required [id number] encounter meeting the encounter requirements on the discharge day. My findings support the fact that the patient is homebound as defined in Home Care Face to Face Continued: CMS Chapter 7 Medicare Benefits Manual 30.1.1 , The condition of the patient is such that there exists a normal inability to leave home and consequently, leaving home would require a considerable and taxing effort. Diet Recommendation: no restrictions on diet Diet Texture: Regular Texture Diet Jarquin: Not applicable Gianni Stockings Discontinue Date: 1 week Wound Care Instructions: keep clean and dry. You may shower Activity/Weight Bearing Restrictions: as tolerated. Equipment: Zero knee while in bed as tolerated. - Follow Up Care Current Providers and Referrals: Oly Mitchell [Primary Care Provider] - Michael Henson MD [Medical Doctor] - 02/13/18
--- NOTE | 2018-02-01 09:51 | GDS ---
ADMISSION DIAGNOSIS: Right knee severe degenerative arthritis. DISCHARGE DIAGNOSIS: Right knee severe degenerative arthritis. OPERATIONS PERFORMED: 01/31/2018: A right total knee arthroplasty. POSTOPERATIVE COMPLICATIONS: None. CONDITION ON DISCHARGE: Improved. DESCRIPTION OF HOSPITAL COURSE: The patient was admitted to the hospital on the morning of surgery. Her admission CBC, electrolytes, and BUN and creatinine were normal. The same day, under a combinat ion of Marcaine, spinal, IV sedation, and adductor canal block, she underwent a right total knee arth roplasty. Postoperatively, she was treated with multimodal DVT prophylaxis, including aspirin. On t he first postoperative day, her hemoglobin and hematocrit were 10.9 and 34.0. She was seen by Physic al Therapy and made satisfactory progress with ambulation and stairs. By the time of discharge, she was afebrile, her dressing was dry, and she was independent walking with a walker. DISPOSITION: The patient discharged to her home. She will have a couple of visits of home PT. She may progress to full weightbearing on the right as tolerated. Use CATHERINE stockings for 1 week. Continu e aspirin 325 mg p.o. daily for 21 days. She has prescriptions for oxycodone, tramadol, and Celebrex for pain control. I will see her back in the office on February 13, 2018. If there are any problem s, she is to call me at the office. /[id number]/MODL
[2018-02-01] MEDS ORDERED: LIPID EMULSION 20% 100 ML IV PRN (09:52)
--- NOTE | 2018-02-01 09:55 | PDPAINCON ---
Pain Management Consultation - Subjective Pain at rest (/10): 7 Pain with activity (/10): 8 Pain is: high, but manageable (pt c/o posterior and lateral pain) Activity: out of bed with assistance - Objective Technique: continuous peripheral nerve block Site: femoral Continuous infusion: ropivicaine Catheter site: clean, dry, intact, no erythema/edema/exudate Sensory and motor exam: consistent with block Vital signs: stable - Assessment/Plan Assessment/Plan: pain well-controlled, continue current mgmt (Pt states having significant pain in posterior lateral part of right leg, however no pain in anterior or medial portion. Reassure patient the AC block working well and that current pain can be managed with PO meds. AC catheter was bolused with 30 ml of 0.5% Ropivicaine and then removed. )
--- NOTE | 2018-02-01 11:03 | ASMTLACE ---
LACE Length of stay for Answers: 2 days current admission Acuity / Level of Answers: Yes Care: Did the patient have an inpatient admission? Comorbidities - select Answers: Opioid dependence all that apply / Chronic pain Other Notes: HTN; Hypothyroid # of Emergency department Answers: 0 visits in the last 6 months Score: 10 Date Signed: 02/01/2018 11:02 AM Electronically Signed By:RACHEL Walker
--- NOTE | 2018-02-01 11:05 | ASMTCMCOM ---
CM Note CM Note Notes: Pt requests MD [facility] input orders. Pt chooses [facility] the home care she recently had in November. Pt medically stable for d/c home with [facility]. Date Signed: 02/01/2018 11:04 AM Electronically Signed By:RACHEL Walker
[2018-02-01 11:16] VITALS: BP 157/86
[2018-02-01] MEDS: FAMOTIDINE 20 MG TAB PO SCH (11:27)
[2018-02-01] MEDS: LIOTHYRONINE SODIUM 5 MCG TAB PO SCH (11:27)
[2018-02-01] MEDS: ASPIRIN 325 MG TAB PO SCH (11:27)
[2018-02-01] MEDS: SENNOSIDES/DOCUSATE SODIUM TAB PO SCH (11:28)
== END 2018-02-01 16:28 | disposition home health service (06) ==
LOC: FSGY 09:43 → EDSTATUS 11:00 → INTOOBSV 11:44 → F3N 11:44
PROVIDERS: ADMIT Orthopaedic Surgery; ATTEND Orthopaedic Surgery
PROC: 0SRC0J9 Replacement of Right Knee Joint with Synthetic Substitute, Cemented, Open Approach (ICD-10-PCS; principal; 2018-01-31 11:00)
DX: M17.11 Unilateral primary osteoarthritis, right knee (principal); E03.9 Hypothyroidism, unspecified; Z23 Encounter for immunization
CPT/HCPCS: 27447; 73560; 77073; 90471; 97116; 97162; 97530; G0378; C1713; G0008; J0171; J0690; J1100; J1885; J2250; J2405; J2704; J2795; J3370

== ENCOUNTER → 2018-05-23 | Outpatient (CLI) | payer OTHER | LOC: FIMAGING 16:30 | PROVIDERS: ATTEND Obstetrics & Gynecology | DX: D25.9 Leiomyoma of uterus, unspecified (principal) ==